=== PATIENT | male | born 1990 | race Two or more races ===

== ENCOUNTER 2019-09-07 16:59 | Emergency (ER) | payer OTHER ==
[~2019-09-07] VITALS: Ht 167.6 cm; Wt 72.7 kg
[2019-09-07] MEDS ORDERED: ACETAMINOPHEN 325 MG TABLET PO ONE (19:00)
[2019-09-07 19:25] VITALS: BP 148/82
[2019-09-07] MEDS ORDERED: TraMADol HCL 50 MG TABLET PO ONE (19:30)
[2019-09-07] MEDS ORDERED: GABAPENTIN 100 MG CAPSULE PO ONE (19:30)
== END 2019-09-07 19:40 | disposition home or self-care (01) ==
LOC: EMS 16:59
DX: G89.29 Other chronic pain (principal); M54.5 Low back pain; M25.561 Pain in right knee; F17.210 Nicotine dependence, cigarettes, uncomplicated